=== PATIENT | female | born 1980 | race Caucasian/White ===

== ENCOUNTER 2016-09-21 01:35 | Emergency (ER) | payer OTHER ==
[2016-09-21] MEDS ORDERED: KETOROLAC 30 MG/ML VIAL IM ONE (01:44)
[2016-09-21] MEDS ORDERED: CLINDAMYCIN 150 MG CAP PO ONE (01:44)
--- NOTE | 2016-09-21 01:49 | Emergency Department Record ---
History of Present Illness - General Chief complaint: Dental Stated complaint: DENTAL PAIN Time Seen by Provider: 09/21/16 01:43 Source: Patient Mode of Arrival: Ambulatory Limitations: No limitations - History of Present Illness Initial comments: 36 yo female presents with left upper dental pain. The pain started on . The pain is sharp in nature. No facial swelling, weakness, or eye swelling. The pain radiates upward. She has one tooth were the pain starts. She called her dentist be he was not in on Thursday. No fevers or chills. No nausea vomiting or other constitutional symptoms. MD complaint: Tooth pain -: Days(s) (3) Location: Tooth # Severity: Severe Quality: Aching Consistency: Constant Improves with: None Worsens with: Eating Context-Epistaxis: History of similar Context- Dental: History of dental caries - Related Data Home Medications Medication Instructions Recorded Confirmed Last Taken Atorvastatin Calcium [Lipitor] 20 mg PO DAILY 06/18/14 03/16/15 1 Day Ago Canagliflozin [Invokana] 300 mg PO DAILY 06/18/14 03/16/15 1 Day Ago Cholecalciferol (Vitamin D3) 50,000 unit PO WEEKLY 06/18/14 03/16/15 1 Day Ago [Vitamin D3] Dextroamphetamine/Amphetamine 20 mg PO BID 06/18/14 03/16/15 1 Day Ago [Amphetamine Salts 20 mg Tablet] Gabapentin [Neurontin] 600 mg PO DAILY 06/18/14 03/16/15 1 Day Ago Levothyroxine Sodium 50 mcg PO DAILY 06/18/14 03/16/15 1 Day Ago Metformin HCl [Metformin HCl] 2,000 mg PO DAILY 06/18/14 03/16/15 1 Day Ago Oxycodone HCl/Acetaminophen 1 each PO QID 06/18/14 03/16/15 1 Day Ago [Oxycodone-Acetaminophen 10-325] Valsartan/Hydrochlorothiazide 1 each PO DAILY 06/18/14 03/16/15 1 Day Ago [Valsartan-Hctz 160-12.5 mg Tab] Lorazepam [Ativan] 0.5 mg PO TID tab 12/20/15 Unknown Previous Rx's Medication Instructions Recorded Clindamycin HCl [Cleocin HCl] 300 mg PO QID #28 capsule 09/21/16 Allergies Allergy/AdvReac Type Severity Reaction Status Date / Time Sulfa (Sulfonamide Allergy Intermediate RASH Unverified 10/05/15 18:03 Antibiotics) Review of Systems Constitutional: Denies: Chills, Fever, Malaise, Weakness Eyes: Denies: Eye discharge, Photophobia ENT: Reports: As per HPI, Dental pain. Denies: Congestion, Ear pain, Epistaxis Respiratory: Denies: Cough, Hemoptysis, Stridor Cardiovascular: Denies: Chest pain Endocrine: Denies: Fatigue Gastrointestinal: Denies: Abdominal pain, Diarrhea, Nausea, Vomiting Genitourinary: Denies: Dysuria Musculoskeletal: Reports: Arthralgia (chronic due to RA), Back pain, Joint swelling Skin: Denies: Bruising, Change in color, Rash Neurological: Denies: Confusion, Headache, Numbness, Weakness Psychiatric: Denies: Anxiety Hematological/Lymphatic: Denies: Easy bleeding, Easy bruising, Swollen glands Past Medical History - SOCIAL HISTORY Smoking Status: Current every day smoker - RESPIRATORY Hx Respiratory Disorders: No - CARDIOVASCULAR Hx Cardio Disorders: Yes Hx Hypertension: Yes Comment:: hypercholesteremia - NEURO Hx Neuropathy: Yes - GI Hx GI Disorders: No - Hx Genitourinary Disorders: No - ENDOCRINE Hx Endocrine Disorders: Yes Hx Diabetes: Yes Hx Thyroid Disease: Yes - MUSCULOSKELETAL Hx Musculoskeletal Disorders: Yes Hx Arthritis: Yes - PSYCH Hx Psych Problems: Yes Hx Anxiety: Yes Hx Depression: Yes - HEMATOLOGY/ONCOLOGY Hx Hematology/Oncology Disorders: No Physical Exam - General General Appearance: Alert, Oriented x3, Cooperative, No acute distress Limitations: No limitations - Head Head exam: Normal inspection Image of Face/Head: 1 - tenderness, NO swellling, NO redness - Eye Eye exam: Normal appearance, PERRL. negative: Conjunctival injection, Periorbital swelling, Periorbital tenderness - ENT ENT exam: Mucous membranes moist, Normal external ear exam, Normal orophraynx, TM's normal bilaterally. negative: Mucous membranes dry Ear exam: Normal external inspection. negative: External canal tenderness Nasal Exam: Normal inspection. negative: Discharge, Sinus tenderness Mouth exam: Normal external inspection, Tongue normal Teeth exam: Normal inspection, Dental tenderness # (14), Gingival enlargement ( mild erythema around tooth #14). negative: Dental caries, Fractured tooth # Throat exam: Normal inspection. negative: Tonsillar erythema, Tonsillar exudate - Neck Neck exam: Normal inspection. negative: Lymphadenopathy, Meningismus, Tenderness - Respiratory Respiratory exam: Normal lung sounds bilaterally. negative: Respiratory distress - Neurological Neurological exam: Alert, Normal gait, Oriented X3. negative: Abnormal gait, Altered - Psychiatric Psychiatric exam: Normal affect, Normal mood. negative: Agitated, Anxious - Skin Skin exam: Dry, Intact, Normal color, Warm. negative: Erythema Course Vital Signs 09/21/16 01:43 Temperature 97.7 F Pulse Rate [ 86 Pulse Ox Probe] Respiratory 18 Rate Blood Pressure 142/87 [Left Arm] Pulse Ox 99 - Reevaluation(s) Reevaluation #1: No visible tooth fracture, no swelling, no abscess, no facial redness, warmth or swelling Given the symptoms clindamycin was provided She is to call her dentist on Thursday09/21/16 01:56 Disposition Disposition: Discharge Clinical Impression: Pain, dental Disposition: Home, Self-Care Condition: (1) Good Instructions: Toothache (ED) Additional Instructions: Call your dentist tomorrow morning to be seen Return if you have fever or swelling Take the Clindamycin as directed Prescriptions: Clindamycin HCl [Cleocin HCl] 300 mg PO QID #28 capsule Forms: Patient Portal Access Time of Disposition: 01:48
== END 2016-09-21 02:02 | disposition home or self-care (01) ==
LOC: ER 01:35
DX: K08.89 Other specified disorders of teeth and supporting structures (principal)
CPT/HCPCS: 99283 ×2; 96372; J1885

== ENCOUNTER 2018-10-15 19:35 | Emergency (ER) | payer OTHER ==
--- NOTE | 2018-10-15 19:52 | Emergency Department Record ---
History of Present Illness - General Chief complaint: Edema Stated complaint: L RING FINGER SWELLING Time Seen by Provider: 10/15/18 19:49 Source: Patient Mode of Arrival: Ambulatory - History of Present Illness Initial comments: The patient is here because she can't get her ring off her finger. It has been tight for over a month due to weight gain. Then yesterday her finger began to hurt. Tonight she tried butter and dish soap wit no success. No other complaints. Onset/Timin -: Days(s) Location: Left, Hand - Related Data Allergies Allergy/AdvReac Type Severity Reaction Status Date / Time Sulfa (Sulfonamide Allergy Intermediate RASH Verified 10/15/18 19:38 Antibiotics) Travel Screening - Travel/Exposure Within Last 30 Days Have you traveled within the last 30 days?: No - Travel Symptoms Symptom Screening: None Review of Systems Reviewed: No additional complaints except as noted below Constitutional: Reports: As per HPI. Denies: Chills, Fever, Malaise, Night sweats, Weakness, Weight change Eyes: Reports: As per HPI. Denies: Eye discharge, Eye pain, Photophobia, Vision change ENT: Reports: As per HPI. Denies: Congestion, Dental pain, Ear pain, Epistaxis, Hearing loss, Throat pain Respiratory: Reports: As per HPI. Denies: Cough, Dyspnea, Hemoptysis, Stridor, Wheezes Cardiovascular: Reports: As per HPI. Denies: Arrhythmia, Chest pain, Dyspnea on exertion, Edema, Murmurs, Orthopnea, Palpitations, Paroxysmal nocturnal dyspnea, Rheumatic Fever, Syncope Endocrine: Reports: As per HPI. Denies: Fatigue, Heat or cold intolerance, Po lydipsia, Polyuria Gastrointestinal: Reports: As per HPI. Denies: Abdominal pain, Constipation, Diarrhea, Hematemesis, Hematochezia, Melena, Nausea, Vomiting Genitourinary: Reports: As per HPI. Denies: Abnormal menses, Discharge, Dyspareunia, Dysuria, Frequency, Hematuria, Incontinence, Retention, Urgency Musculoskeletal: Reports: As per HPI. Denies: Arthralgia, Back pain, Gout, Joint swelling, Myalgia, Neck pain Skin: Reports: As per HPI. Denies: Bruising, Change in color, Change in hair/na ils, Lesions, Pruritus, Rash Neurological: Reports: As per HPI. Denies: Abnormal gait, Confusion, Headache, Numbness, Paresthesias, Seizure, Tingling, Tremors, Vertigo, Weakness Psychiatric: Reports: As per HPI. Denies: Anxiety, Auditory hallucinations, Depression, Homicidal thoughts, Suicidal thoughts, Visual hallucinations Hematological/Lymphatic: Reports: As per HPI. Denies: Anemia, Blood Clots, Easy bleeding, Easy bruising, Swollen glands Past Medical History - SOCIAL HISTORY Smoking Status: Current every day smoker - RESPIRATORY Hx Respiratory Disorders: No - CARDIOVASCULAR Hx Cardio Disorders: Yes Hx Hypertension: Yes Comment:: hypercholesteremia - NEURO Hx Neuro Disorders: Yes Hx Neuropathy: Yes - GI Hx GI Disorders: No - Hx Genitourinary Disorders: No - ENDOCRINE Hx Endocrine Disorders: Yes Hx Diabetes: Yes Hx Thyroid Disease: Yes - MUSCULOSKELETAL Hx Musculoskeletal Disorders: Yes Hx Arthritis: Yes - PSYCH Hx Psych Problems: Yes Hx Anxiety: Yes Hx Depression: Yes - HEMATOLOGY/ONCOLOGY Hx Hematology/Oncology Disorders: No Family Medical History Any Significant Family History?: Yes Hx Dementia: Father Hx Resp Disorders: Father Physical Exam - General General Appearance: Alert, Oriented x3, Cooperative, No acute distress - Head Head exam: Normal inspection - Eye Eye exam: Normal appearance, PERRL, EOMI. negative: Nystagmus Pupils: Normal accommodation - ENT ENT exam: Normal exam, Mucous membranes moist, Normal external ear exam, Normal orophraynx Ear exam: Normal external inspection. negative: External canal tenderness Nasal Exam: Normal inspection. negative: Discharge, Sinus tenderness Mouth exam: Normal external inspection, Tongue normal Teeth exam: Normal inspection. negative: Dental caries Throat exam: Normal inspection. negative: Tonsillar erythema, Tonsillar exudate - Neck Neck exam: Normal inspection, Full ROM. negative: Lymphadenopathy, Meningismus, Tenderness - Respiratory Respiratory exam: Normal lung sounds bilaterally. negative: Respiratory d istress - Cardiovascular Cardiovascular Exam: Regular rate, Normal rhythm, Normal heart sounds - GI/Abdominal GI/Abdominal exam: Soft. negative: Tenderness - Rectal Rectal exam: Deferred - exam: Deferred - Extremities Extremities exam: Normal inspection, Full ROM, Normal capillary refill, Other (left ring finger with wedding ring able to be rotated, but unable to be removed. Distal digital artery pulse palpable, but finger mildly swollen.). negative: Tenderness - Back Back exam: Reports: Normal inspection, Full ROM. Denies: Muscle spasm, Rash noted, Tenderness - Neurological Neurological exam: Alert, Normal gait, Oriented X3, Reflexes normal - Psychiatric Psychiatric exam: Normal affect, Normal mood - Skin Skin exam: Dry, Intact, Normal color, Warm Course Vital Signs 10/15/18 19:42 Temperature 99.0 F Pulse Rate [ 122 H Left] Respiratory 16 Rate Blood Pressure 121/91 [Left Arm] Pulse Ox 95 - Reevaluation(s) Reevaluation #1: Ring removed successfully after ice and elevation. Patient ready for DC home. 10/15/18 20:28 Reevaluation #2: Ring finger now pain-free, some swelling remains but has decreased. Patient ready for DC. 10/15/18 20:30 Medical Decision Making - Management Options MDM Management: No Additional Work-up Planned Disposition Disposition: Discharge Clinical Impression: Tight ring on finger Disposition: Home, Self-Care Condition: (1) Good Additional Instructions: Have ring resized as needed. PCP follow up as needed. Quality - Quality Measures Quality Measures: N/A - Blood Pressure Screening Does Patient Have Any of the Following: No Blood Pressure Classification: Hypertensive Reading Systolic Measurement: 121 Diastolic Measurement: 91 Screening for High Blood Pressure: < Normal BP, F/U Not Required > [G8783]
== END 2018-10-15 20:44 | disposition home or self-care (01) ==
LOC: ER 19:35
DX: S60.441A External constriction of left index finger, initial encounter (principal); W49.04XA Ring or other jewelry causing external constriction, initial encounter; I10 Essential (primary) hypertension; F17.210 Nicotine dependence, cigarettes, uncomplicated
CPT/HCPCS: 99282

== ENCOUNTER 2019-06-06 07:39 | Emergency (ER) | payer OTHER ==
--- NOTE | 2019-06-06 07:51 | Emergency Department Record ---
History of Present Illness - General Chief complaint: Nausea, Vomiting, Diarrhea Stated complaint: N/V/D Time Seen by Provider: 06/06/19 07:46 Source: Patient Mode of Arrival: Ambulatory Limitations: No limitations - History of Present Illness Initial comments: The patient is here due to a 4 day hx of frequent nausea, vomiting and loose watery stools. There has been no hx of fever, dysuria, AP, or back pain. The vomiting is now improved but there is still the diarrhea. The patient is also a diabetic and feels her sugar may be high. MD complaint: Diarrhea, Nausea, Vomiting Onset/Timin -: Days(s) Severity: Moderate Severity scale (1-10): 3 Quality: Aching, Cramping Consistency: Constant - Related Data Home Medications Medication Instructions Recorded Confirmed Last Taken Sitagliptin Phosphate [Januvia] 100 mg PO DAILY 06/06/19 06/06/19 1 Day Ago ~06/05/19 Allergies Allergy/AdvReac Type Severity Reaction Status Date / Time Sulfa (Sulfonamide Allergy Intermediate RASH Verified 06/06/19 07:46 Antibiotics) Travel Screening - Travel/Exposure Within Last 30 Days Have you traveled within the last 30 days?: No - Travel/Exposure Within Last Year Have you traveled outside the [place] in the last year?: No - Additonal Travel Details Have you been exposed to anyone with a communicable illness?: No - Travel Symptoms Symptom Screening: None Review of Systems Constitutional: Denies: Chills, Fever Eyes: Denies: Eye discharge ENT: Denies: Congestion Respiratory: Denies: Cough, Dyspnea Cardiovascular: Denies: Arrhythmia Endocrine: Reports: Fatigue Gastrointestinal: Reports: Diarrhea, Vomiting Genitourinary: Denies: Dysuria Musculoskeletal: Denies: Arthralgia Neurological: Denies: Abnormal gait Past Medical History - SOCIAL HISTORY Smoking Status: Current every day smoker Alcohol Use: None Drug Use: Occasional Drug Use Detail:: Marijuana - RESPIRATORY Hx Respiratory Disorders: No - CARDIOVASCULAR Hx Cardio Disorders: Yes Hx Hypertension: Yes Comment:: hypercholesteremia - NEURO Hx Neuro Disorders: Yes Hx Neuropathy: Yes - GI Hx GI Disorders: No - Hx Genitourinary Disorders: No - ENDOCRINE Hx Endocrine Disorders: Yes Hx Diabetes: Yes (NIDDM) Hx Thyroid Disease: Yes - MUSCULOSKELETAL Hx Musculoskeletal Disorders: Yes Hx Arthritis: Yes - PSYCH Hx Psych Problems: Yes Hx Anxiety: Yes Hx Depression: Yes - HEMATOLOGY/ONCOLOGY Hx Hematology/Oncology Disorders: No Family Medical History Any Significant Family History?: Yes Hx Dementia: Father Hx Resp Disorders: Father Physical Exam - General General Appearance: Alert, Oriented x3, Cooperative, No acute distress - Head Head exam: Atraumatic, Normocephalic - Eye Eye exam: Normal appearance, PERRL - ENT Throat exam: Normal inspection. negative: Tonsillar erythema, Tonsillar exudate - Neck Neck exam: Normal inspection, Full ROM. negative: Tenderness - Respiratory Respiratory exam: Normal lung sounds bilaterally. negative: Respiratory distress - Cardiovascular Cardiovascular Exam: Regular rate, Normal rhythm, Normal heart sounds - GI/Abdominal GI/Abdominal exam: Soft, Normal bowel sounds. negative: Rebound, Rigid, Tenderness - Extremities Extremities exam: Normal inspection, Full ROM, Normal capillary refill. negative: Tenderness - Back Back exam: Reports: Normal inspection - Neurological Neurological exam: Alert, Normal gait. negative: Abnormal gait, Motor sensory deficit - Skin Skin exam: negative: Rash Course Vital Signs 06/06/19 07:40 Temperature 98.3 F Pulse Rate 110 H Respiratory 18 Rate Blood Pressure 127/78 Pulse Ox 99 - Reevaluation(s) Reevaluation #1: The patient is feeling much better at this time. She denies any nausea or pain and is drinking fluids well. 06/06/19 09:55 Reevaluation #2: The patient is doing a lot better at this time. Her repeat blood sugar is 342 and she feels ready for home. The patient denies any pain, abdominal cramping or any nausea or vomiting. She is to take her medicines and monitor her blood sugar twice a day. 06/06/19 10:14 Medical Decision Making - Lab Data Result diagrams: 06/06/19 08:00 06/06/19 08:00 Disposition Disposition: Discharge Clinical Impression: Gastroenteritis Disposition: Home, Self-Care Condition: (2) Stable Instructions: Acute Nausea and Vomiting (ED) Additional Instructions: Please continue the nausea medicine and continue your regular medicines. Monitor your blood sugars twice a day and please see your family doctor later this week or next week for recheck. Return to the ER for any worsening issues, pain, v omiting, or blood sugar >500. Forms: Patient Portal Access Time of Disposition: 10:24 Quality - Quality Measures Quality Measures: N/A - Blood Pressure Screening View Details: Yes Does Patient Have Any of the Following: No Blood Pressure Classification: Pre-Hypertensive BP Reading Systolic Measurement: 127 Diastolic Measurement: 78 Screening for High Blood Pressure: < Pre-Hypertensive BP, F/U Documented > [G8950] Pre-Hypertensive Follow-up Interventions: Referral to alternative/primary care provider.
[2019-06-06] MEDS: 0.9 % SODIUM CHLORIDE 1,000 ML BAG IV ONE (08:06)
[2019-06-06] MEDS: ONDANSETRON HCL IV 4 MG/2 ML VIAL IV ONE (08:07)
[2019-06-06 08:12] LABS: ABSOLUTE NEUTROPHIL COUNT 6.52; BASO % 0.3 % (0-6); EOS % 7.4 % (0-6); GRAN % 67.6 % (47-80); HEMOGLOBIN 12.8 gm/dl (11.6-16.0); LYMPH % 19.4 % (16-45); MEAN CELL VOLUME 85.1 fl (81-97); MEAN CORPUSCULAR HEMOGLOBIN 27.2 pg (27-33); MEAN PLATELET VOLUME 10.2 fl (7.4-10.4); MONO % 5.3 % (0-9); PLATELET COUNT 347 K/uL (130-400); RED CELL DISTRIBUTION WIDTH 15.4 % (11.5-14.5); URINE APPEARANCE CLEAR; URINE BILIRUBIN NEGATIVE (NEGATIVE); URINE BLOOD MODERATE (NEGATIVE); URINE COLOR YELLOW; URINE KETONE NEGATIVE (NEGATIVE); URINE LEUKOCYTE ESTERASE NEGATIVE (NEGATIVE); URINE NITRITE NEGATIVE (NEGATIVE); URINE PROTEIN NEGATIVE (NEGATIVE); URINE UROBILINOGEN 0.2 E.U./dL (0.20 - 1.00); WHITE BLOOD COUNT W/O DIFF 9.6 K/uL (4.2-12.2)
[2019-06-06 08:16] LABS: BILIRUBIN,TOTAL < 0.20 mg/dL (0.2-1.0); BLOOD UREA NITROGEN 11 mg/dL (6-20); CREATININE 0.6 mg/dL (0.5-0.9); EST GLOMERULAR FILTRATION RATE > 60 mL/min
[2019-06-06 08:17] LABS: LIPASE 63 U/L (13-60); TOTAL PROTEIN 6.8 g/dL (6.6-8.7)
[2019-06-06 08:21] LABS: ALB/GLOB RATIO 1.3 (1.1-1.8); ALBUMIN 3.8 g/dL (4.0-5.0); ALT/SGPT 96 U/L (<33); AST/SGOT 82 U/L (10.0-35.0); URINE EPITHELIAL CELLS NONE SEEN (FEW); URINE GLUCOSE (UA) >=1000 mg/dL (NEGATIVE); URINE WBC NONE SEEN (0-2/hpf)
[2019-06-06 08:22] LABS: ALKALINE PHOSPHATASE 96 U/L (35-104)
[2019-06-06 08:31] LABS: GLUCOSE,RANDOM 483 mg/dL (74-109)
[2019-06-06] MEDS: POTASSIUM CHLORIDE 20 MEQ TABLET PO ONE (08:41)
[2019-06-06] MEDS: POTASSIUM CHL 20MEQ IN 1L NS 20 MEQ/1,000 ML BAG IV ONE (08:51)
[2019-06-06] MEDS: HUMULIN R 100 UNIT/ML VIAL IV ONE (09:09)
== END 2019-06-06 10:30 | disposition home or self-care (01) ==
LOC: ER 07:39
DX: K52.9 Noninfective gastroenteritis and colitis, unspecified (principal); R11.2 Nausea with vomiting, unspecified; F17.210 Nicotine dependence, cigarettes, uncomplicated; E11.9 Type 2 diabetes mellitus without complications; Z79.4 Long term (current) use of insulin
CPT/HCPCS: 36416; 80053; 81001; 82009; 82948; 83690; 84703; 85025; 96361; 96365; 96366; 96375; 99284; J2405; J7030